=== PATIENT | female | born 2000 | race Caucasian/White ===

== ENCOUNTER 2023-01-28 11:49 | Emergency (ER) | payer MEDICAID ==
[~2023-01-28] VITALS: Ht 162.6 cm; Wt 69.5 kg
[2023-01-28 12:11] VITALS: TEMP 99.3
[2023-01-28] MEDS ORDERED: CefTRIAXone 1 GM/DEXTROSE 50 ML IV ONE (13:30)
[2023-01-28] MEDS ORDERED: KETOROLAC TROMETHAMINE 30 MG/ML VIAL IVP ONE (13:30)
[2023-01-28] MEDS ORDERED: DEXAMETHASONE SOD PHOS 4 MG/ML 5 ML VIAL IVP ONE (13:30)
[2023-01-28] MEDS ORDERED: PENI500T2 PO (13:46)
[2023-01-28] MEDS ORDERED: IBUP-1492 PO (13:47)
[2023-01-28 15:15] VITALS: BP 124/71; PULSE 87; RESP 17
== END 2023-01-28 15:17 | disposition home or self-care (01) ==
LOC: EMS 11:51
DX: J02.0 Streptococcal pharyngitis (principal)
CPT/HCPCS: 99284; 96374; 96361; 96375; 87430; J0696; J1100; J1885